=== PATIENT | female | born 1980 | race American Indian/Alaskan Native ===

== ENCOUNTER 2017-08-16 03:46 | Inpatient (IN) | payer BC, MEDICAID, OTHER ==
[2017-08-16] MEDS ORDERED: LACTATED RINGERS 1,000 ML ONE (04:49)
[2017-08-16] MEDS ORDERED: APRESOLINE IV ONE (05:26)
[2017-08-16] MEDS ORDERED: MAGNESIUM SULFATE 4GM/100ML 4 GM/100 ML BAG IV ONE (05:30)
[2017-08-16] MEDS ORDERED: MAGNESIUM SULFATE IV ONE (05:31)
[2017-08-16 05:36] LABS: Amphetamine Screen,Urine PRESUMPTIVE NEGATIVE; Benzodiazepines Screen,Urine PRESUMPTIVE NEGATIVE; Cannabinoid Screen,Urine PRESUMPTIVE NEGATIVE; Cocaine Screen,Urine PRESUMPTIVE NEGATIVE; Methadone Screen,Urine PRESUMPTIVE NEGATIVE; Opiate Screen,Urine PRESUMPTIVE NEGATIVE
[2017-08-16] MEDS ORDERED: CLEOCIN 900 MG/50 mL 900 MG/50 ML BAG IV SCH (06:00)
[2017-08-16 06:16] LABS: Basophils % (Auto) 0.4 % (0.0-1.8); Eosinophils # (Auto) 0.1 K/mm3 (0.0-0.4); Hematocrit 33.8 % (30.3-42.9); Hemoglobin 11.6 gm/dl (10.1-14.3); Lymphocytes # (Auto) 1.8 K/mm3 (1.2-5.4); Lymphocytes % (Auto) 19.5 % (13.4-35.0); Mean Corpuscular HGB Conc 34 % (30-34); Mean Corpuscular Hemoglobin 27 pg (28-32); Mean Corpuscular Volume 78 fl (79-97); Monocytes # (Auto) 0.9 K/mm3 (0.0-0.8); Monocytes % (Auto) 9.9 % (0.0-7.3); Platelet Count 301 K/mm3 (140-440); Red Blood Count 4.34 M/mm3 (3.65-5.03)
[2017-08-16] MEDS: MAGNESIUM SULFATE 40GM/1000ML 40 GM/1,000 ML BAG IV SCH (06:22)
[2017-08-16 06:30] LABS: Alanine Aminotransferase 9 units/L (7-56)
[2017-08-16 06:38] LABS: Hepatitis C Virus Antibody Non-Reactive (NonReactive)
[2017-08-16] MEDS ORDERED: LACTATED RINGERS 1,000 ML IV SCH (07:00)
[2017-08-16] MEDS ORDERED: PITOCin/NS 20 UNIT/1000ML DRIP 20,000 MILLIUNITS/1,000 ML BAG IV ONE ×2 (07:25→14:41)
[2017-08-16] MEDS: PITOCin/NS 20 UNIT/1000ML DRIP 20 UNITS/1,000 ML BAG IV SCH ×2 (07:38→15:03)
[2017-08-16 07:59] LABS: Rubella IgG Antibody Immune (Immune)
[2017-08-16] MEDS ORDERED: APRESOLINE IV NR (09:00)
--- NOTE | 2017-08-16 09:11 | History and Physical Report ---
History of Present Illness Date of examination: 08/16/17 Date of admission: 08/16/17 04:03 Chief complaint: My water broke History of present illness: Patient is a 36 year old who presents at 39 weeks with EDC 08/21 via an early ultrasound at another facility. Patient did not receive care due to loss of insurance. She presents today with AROM and contractions Past History Past Medical History: no pertinent history Past Surgical History: no surgical history Social history: - Obstetrical History Expected Date of Delivery: 08/21/17 Actual Gestation: 39 Week(s) 4 Day(s) : 11 Para: 8 Number of Living Children: 8 Medications and Allergies Allergies Allergy/AdvReac Type Severity Reaction Status Date / Time No Known Allergies Allergy Verified 03/20/15 07:59 Home Medications Medication Instructions Recorded Confirmed Last Taken Type Pnv95/Ferrous Fumarate/FA 1 each PO QDAY #90 tablet 01/09/13 08/16/17 11/03/13 Rx [ Vitamins] Potassium Chloride 10 meq PO QDAY #3 capsule.er 01/09/13 08/16/17 11/03/13 Rx Acetaminophen/Codeine 1 tab PO Q6H PRN #20 tab 01/15/14 08/16/17 Unknown Rx [Acetaminophen-Codeine #3 TAB] Clindamycin [Clindamycin CAP] 300 mg PO Q8H 7 Days cap 01/15/14 08/16/17 Unknown Rx Ondansetron [Zofran Oral Liq] 4 mg PO Q4H PRN #80 ml 01/15/14 08/16/17 Unknown Rx Iron 1 tab PO DAILY 08/16/17 08/16/17 08/14/17 History Formula Tablet 1 tab PO DAILY 08/16/17 08/16/17 08/14/17 16:00 History Ibuprofen [Motrin] 800 mg PO Q8HR PRN #40 tablet 08/18/17 Unknown Rx NIFEdipine XL [Procardia Xl] 60 mg PO Q12HR #60 tab 08/18/17 Unknown Rx Active Meds: Active Medications Hydralazine HCl (Apresoline) 5 mg IV ONCE NR Stop: 08/16/17 10:00 Magnesium Sulfate (Magnesium Sulfate 40gm/1000ml) 40 gm in 1,000 mls @ 50 mls/ hr IV DIRECT JESICA Last Admin: 08/16/17 06:22 Dose: 2 gm/hr, 50 mls/hr Clindamycin HCl (Cleocin 900 Mg/50 Ml) 900 mg in 50 mls @ 100 mls/hr IV Q8HR JESICA; Protocol Last Admin: 08/16/17 06:00 Dose: 100 mls/hr Lactated Ringer's (Lactated Ringers) 1,000 mls @ 125 mls/hr IV DIRECT JESICA Last Admin: 08/16/17 06:16 Dose: 125 mls/hr Oxytocin/Sodium Chloride (Pitocin/Ns 20 Unit/1000ml Drip) 20 units in 1,000 mls @ 125 mls/hr IV DIRECT JESICA Last Admin: 08/16/17 07:38 Dose: 125 mls/hr Review of Systems All systems: negative Cardiovascular: lightheadedness Genitourinary: pelvic pain, contractions - Vital Signs Vital signs: Vital Signs Pulse BP 80 191/97 08/16/17 04:31 08/16/17 04:31 Temp Pulse Resp BP Pulse Ox 97.9 F 89 16 174/95 96 08/16/17 08:59 08/16/17 08:59 08/16/17 08:59 08/16/17 08:59 08/16/17 08:37 - Physical Exam Breasts: Positive: deferred Cardiovascular: Regular rate, Normal S1, Normal S2 Lungs: Positive: Clear to auscultation, Normal air movement Abdomen: Positive: normal appearance, soft, normal bowel sounds. Negative: distention, tenderness Genitourinary (Female): Positive: normal external genitalia, normal perenium Vulva: both: normal Vagina: Positive: normal moisture. Negative: discharge Cervix: Negative: lesion, discharge Uterus: Positive: normal size, normal contour Adnexa: both: normal Anus/Rectum: Positive: normal perianal skin, heme negative. Negative: rectal mass, hemorrhoids Extremities: Deep Tendon Reflex Grade: Normal +2 - Obstetrical Cervical Dilatation: 4 Cervical Effacement Percentage: 80 station: -2 Uterine Contraction Pattern: Regular Uterine Contraction Intensity: Moderate Results Result Diagrams: 08/16/17 19:21 08/16/17 06:03 Abnormal lab results 08/16/17 08/16/17 Range/Units 06:03 06:03 MCV 78 L (79-97) fl MCH 27 L (28-32) pg [place] % (Auto) 9.9 H (0.0-7.3) % [place] # 0.9 H (0.0-0.8) K/mm3 Creatinine 0.5 L (0.7-1.2) mg/dL Lactate Dehydrogenase 192 H (91-180) units/L All other labs normal. Assessment and Plan IUP AT 39.4 WEEKS IN ACTIVE LABOR WITH SROM. ADMIT FOR LABOR. OBTAIN PANEL AND UDS. TREAT FOR GBS PROPHYLAXIS. ANTICIPATE .
--- NOTE | 2017-08-16 09:13 | Procedure Note ---
OB Delivery Note - Delivery Date of Delivery: 08/16/17 Surgeon: ANJU DAS Estimated blood loss: 200cc - Vaginal Delivery presentation: vertex Delivery position: OA Intrapartum events: no care Delivery induction: none Delivery monitor: external FHT, external uterine Route of delivery: Delivery placenta: spontaneous Delivery cord: 3 umbilical vessels Episiotomy: none Delivery laceration: none Anesthesia: local - Infant A at 1 minute: 8 at 5 minutes: 9 Gender: Female (6 pounds 4 ounces)
[2017-08-16 10:17] LABS: Bacteria,Urine 2+ /HPF (Negative); Bilirubin,Urine NEG (Negative); Blood,Urine SM (Negative); Color,Urine Yellow (Yellow); Mucus,Urine FEW /HPF
[2017-08-16] MEDS: TYLENOL PO PRN (10:20)
[2017-08-16] MEDS ORDERED: NORMODYNE IV ONE (10:20)
[2017-08-16] MEDS: PROCARDIA XL PO SCH ×2 (10:22→22:02)
[2017-08-16] MEDS ORDERED: APRESOLINE IV PRN (10:30)
[2017-08-16] MEDS ORDERED: NORCO 5/325 PO PRN (10:30)
[2017-08-16] MEDS ORDERED: PHENERGAN PR PRN (11:00)
[2017-08-16] MEDS ORDERED: SODIUM CHLORIDE FLUSH SYRINGE 10 ML IV PRN (11:00)
[2017-08-16] MEDS ORDERED: TUCKS PAD TP PRN (11:00)
[2017-08-16] MEDS ORDERED: DULCOLAX PR PRN (11:00)
[2017-08-16] MEDS ORDERED: LANSINOH TP PRN (11:00)
[2017-08-16] MEDS ORDERED: PHENERGAN PO PRN (11:00)
[2017-08-16] MEDS ORDERED: BENADRYL PO PRN (11:00)
[2017-08-16] MEDS ORDERED: ZOFRAN IV PRN (11:00)
[2017-08-16] MEDS: MOTRIN PO SCH ×2 (11:40→17:01)
[2017-08-16 20:03] LABS: Hematocrit 30.8 % (30.3-42.9); Hemoglobin 10.1 gm/dl (10.1-14.3)
[2017-08-16] MEDS ORDERED: MILK OF MAGNESIA PO PRN (22:00)
[2017-08-16] MEDS: COLACE PO SCH (22:02)
[2017-08-17] MEDS: MOTRIN PO SCH ×4 (00:06→18:21)
[2017-08-17] MEDS ORDERED: LACTATED RINGERS 1,000 ML IV SCH (02:15)
[2017-08-17] MEDS: MAGNESIUM SULFATE 40GM/1000ML 40 GM/1,000 ML BAG IV SCH (02:17)
[2017-08-17] MEDS: COLACE PO SCH ×2 (09:57→21:25)
[2017-08-17] MEDS: PRENATAL VITAMIN PO SCH (09:57)
[2017-08-17] MEDS: PROCARDIA XL PO SCH ×2 (09:58→21:25)
[2017-08-17] MEDS: TYLENOL PO PRN ×2 (10:11→17:04)
[2017-08-18] MEDS: MOTRIN PO SCH ×3 (00:15→12:46)
--- NOTE | 2017-08-18 08:29 | Progress Note ---
Assessment and Plan PPD2 S/P WITH NO CARE AND ELEVATED BLOOD PRESSURE. PATIENT HAS HAD LOWERING OF BLOOD PRESSURE WITH CURRENT REGIMEN. PATIENT IS LIKELY A CHRONIC HYPERTENSIVE. Subjective - Subjective Date of service: 08/18/17 Principal diagnosis: TERM , NO CARE, HYPERTENSION Interval history: Patient is a 36 year old who presents at 39 weeks with EDC 08/21 via an early ultrasound at another facility. Patient did not receive care due to loss of insurance. She presents today with AROM and contractions Patient reports: appetite normal, voiding normally, pain well controlled, ambulating normally : doing well Objective - Vital Signs Latest vital signs: Vital Signs Temp Pulse Resp BP BP Pulse Ox 08/18/17 04:00 98.7 F 66 16 135/69 08/17/17 23:30 98.7 F 89 16 140/79 08/17/17 15:55 98.8 F 86 20 140/83 97 08/17/17 13:33 99 F 100 H 20 131/77 Intake and Output 08/17/17 08/18/17 08/18/17 22:59 06:59 14:59 Intake Total 360 Balance 360 Intake: Oral 360 Other: Total, Intake Amount 360 # Voids Void 1 - Exam Breasts: Present: normal Cardiovascular: Present: Regular rate, Normal S1 Lungs: Present: Clear to auscultation, Normal air movement Abdomen: Present: normal appearance, soft Uterus: Present: normal, firm, fundal height below umbilicus Extremities: Present: normal Deep Tendon Reflex Grade: Dull/Diminished +1
--- NOTE | 2017-08-18 08:31 | Discharge Summary ---
Providers - Providers Date of Admission: 08/16/17 04:03 Date of discharge: 08/18/17 Attending physician: ANJU DAS Primary care physician: ANJU DAS Hospitalization Reason for admission: active labor, IUP at term Episiotomy: none Laceration: none Other procedures: none complications: other (HYPERTENSION) Discharge diagnosis: IUP at term delivered Abbot baby: female Condition at discharge: Good Disposition: DC-01 TO HOME OR SELFCARE Plan - Discharge Medications Prescriptions: Ibuprofen [Motrin] 800 mg PO Q8HR PRN #40 tablet PRN Reason: Pain NIFEdipine XL [Procardia Xl] 60 mg PO Q12HR #60 tab - Provider Discharge Summary Additional instructions: [] Smoking cessation referral if applicable(refer to patient education folder for contact #) [] Refer to [facility]'s [facility] Booklet Call your doctor immediately for: * Fever > 100.5 * Heavy vaginal bleeding ( >1 pad per hour) * Severe persistent headache * Shortness of breath * Reddened, hot, painful area to leg or breast * Drainage or odor from incision. * Keep incision clean and dry at all times and follow doctor's instructions regarding bathing/showering - Follow up plan Follow up: ANJU DAS MD [Primary Care Provider] - 7 Days Forms: [facility] Discharge Summary
[2017-08-18] MEDS: COLACE PO SCH (10:12)
[2017-08-18] MEDS: PROCARDIA XL PO SCH (10:12)
[2017-08-18] MEDS: PRENATAL VITAMIN PO SCH (10:12)
[2017-08-18 16:14] VITALS: BP 145/85
== END 2017-08-18 16:30 | disposition home or self-care (01) | DRG 775 ==
LOC: TRG 03:46 → LD 04:03 → OB 14:48
PROVIDERS: ADMIT Obstetrics & Gynecology; ATTEND Obstetrics & Gynecology
PROC: 10E0XZZ Delivery of Products of Conception, External Approach (ICD-10-PCS; principal; 2017-08-16)
DX: O16.4 Unspecified maternal hypertension, complicating childbirth (principal); Z3A.39 39 weeks gestation of pregnancy; Z37.0 Single live birth
CPT/HCPCS: 36415; 80307; 81001; 82565; 83615; 83735; 84450; 84460; 84550; 85014; 85018; 85025; 86592; 86706; 86762; 86803; 86850; 86900; 86901; 87806; 88307; 99211; G0463; J0360; J2590; J3475; J7120